=== PATIENT | female | born 1955 | race Caucasian/White ===

== ENCOUNTER 2017-01-12 10:57 | Inpatient (IN) ==
[2017-01-08 17:20] LABS: Basophils # (Auto) 0 K/mcL (0.0-0.3); Basophils % (Auto) 0.6 % (0.0-2.0); Eosinophils # (Auto) 0.3 K/mcL (0.0-0.7); Eosinophils % (Auto) 5.6 % (0.0-7.0); Granulocytes % (Auto) 51.1 % (38.0-78.0); Lymphocytes # (Auto) 1.9 K/mcL (1.5-4.8); Lymphocytes % (Auto) 34.4 % (15.5-49.0); Mean Cell Volume 87.5 fL (80.0-100.0); Mean Corpuscular Hemoglobin 28.9 pg (26.0-34.0); Monocytes # (Auto) 0.5 K/mcL (0.1-0.9); Monocytes % (Auto) 8.3 % (1.0-12.0); Platelet Count 208 K/mcL (140-440); RBC 4.74 M/mcL (4.00-5.20); Red Cell Distribution Width 13.9 % (11.5-14.5)
[2017-01-08 17:33] LABS: Blood Urea Nitrogen 15 mg/dl (6-20)
[2017-01-08 17:58] LABS: Appearance,Urine CLEAR; Bacteria,Urine 0 /hpf (0); Bilirubin,Urine NEG (NEG); Color,Urine YELLOW; Glucose,Urine (UA) NEGATIVE (NEG); Leukocyte Esterase,Urine 25 /uL (NEG); Mucus,Urine MANY /hpf (0); Nitrate,Urine NEG (NEG); Protein,Urine NEG (NEG); Specific Gravity,Urine 1.021 (1.000-1.035); Urine Blood NEG mg/dL (<0.03); Urine RBC 1 /hpf (0-1); Urine Squamous Epithelial Cell 1 /hpf (0-4); Urine Transitional Epi Cells < 1 /hpf (0-2); Urine WBC 5 /hpf (0-4); Urobilinogen,Urine NEG (NEG)
[~2017-01-12 10:57] MED LIST: ACETAMINOPHEN 500 MG TABLET PO SCH; CELECOXIB 200 MG CAPSULE PO SCH; KETOROLAC 30 MG, ROPIVACAINE HCL/PF 49.5 ML, EPINEPHrine 0.5 MG, 0.9 % SODIUM CHLORIDE ... IJ ONE; PREGABALIN 150 MG CAPSULE PO SCH; ceFAZolin 1 GM VIAL IV SCH; oxyCODONE 10 MG TAB.ER.12H PO SCH
[2017-01-12] MEDS ORDERED: ONDANSETRON 4 MG/2 ML VIAL IV ONE (16:05)
[2017-01-12] MEDS ORDERED: MIDAZOLAM 5 MG/5 ML VIAL IV ONE (16:05)
[2017-01-12] MEDS ORDERED: TRANEXAMIC ACID 1,000 MG/10 ML VIAL IV ONE (16:05)
[2017-01-12] MEDS ORDERED: GLYCOPYRROLATE 0.2 MG/ML VIAL IV ONE (16:05)
[2017-01-12] MEDS ORDERED: PROPOFOL 200 MG/20 ML VIAL IV ONE (16:05)
[2017-01-12] MEDS ORDERED: LIDOCAINE HCL/PF 100 MG/5 ML SYRINGE IV ONE (16:05)
[2017-01-12] MEDS ORDERED: ROPIVACAINE HCL/PF 30 ML VIAL IJ ONE (16:05)
[2017-01-12] MEDS ORDERED: DEXAMETHASONE 10 MG/ML VIAL IV ONE (16:05)
[2017-01-12] MEDS ORDERED: GENTAMICIN SULFATE 800 MG/20 ML VIAL IR ONE (16:31)
[2017-01-12] MEDS ORDERED: PROMETHAZINE 25 MG/ML VIAL IM ONE (17:13)
[2017-01-12] MEDS ORDERED: fentaNYL 100 MCG/2 ML VIAL IV PRN (17:13)
[2017-01-12] MEDS ORDERED: MEPERIDINE 50 MG/ML SYRINGE IM ONE (17:13)
[2017-01-12] MEDS ORDERED: NALOXONE HCL 0.4 MG/ML VIAL IV PRN (17:13)
[2017-01-12] MEDS ORDERED: METHOCARBAMOL 1,000 MG/10 ML VIAL IV PRN (17:13)
[2017-01-12] MEDS ORDERED: IPRATROPIUM/ALBUTEROL 3 ML AMPUL.NEB NEB PRN (17:13)
[2017-01-12] MEDS ORDERED: BENZOCAINE/MENTHOL 1 LOZENGE PO PRN ×2 (17:13→17:50)
[2017-01-12] MEDS ORDERED: ONDANSETRON 4 MG/2 ML VIAL IV PRN ×2 (17:13→17:50)
[2017-01-12] MEDS ORDERED: LACTATED RINGERS 250 ML IV PRN (17:13)
[2017-01-12] MEDS ORDERED: ePHEDrine 50 MG/ML AMPUL IV PRN (17:13)
[2017-01-12] MEDS ORDERED: METOCLOPRAMIDE 10 MG/2 ML VIAL IV PRN (17:13)
[2017-01-12] MEDS ORDERED: diphenhydrAMINE 50 MG/ML VIAL IV PRN (17:13)
[2017-01-12] MEDS ORDERED: PROMETHAZINE 25 MG/ML VIAL IV PRN (17:13)
[2017-01-12] MEDS ORDERED: MEPERIDINE 25 MG/ML SYRINGE IV PRN (17:13)
[2017-01-12] MEDS ORDERED: FLUMAZENIL 0.1 MG/ML ML IV PRN (17:13)
[2017-01-12] MEDS ORDERED: HYDROmorphone 2 MG/ML SYRINGE IV PRN ×2 (17:13→17:50)
[2017-01-12] MEDS ORDERED: LACTATED RINGERS 1,000 ML IV SCH (17:15)
--- NOTE | 2017-01-12 17:48 | Brief Operative Note ---
Date of procedure: 01/12/17 Pre-op diagnosis: Right knee severe djd with acl tear and loose bodies Post-op diagnosis: same Procedure: right tka with to robot assist Grafts/Implants: Yes Anesthesia: GETA Complications: none Surgeon: Viktor Mosqueda Raw Silk Grader: He Granados Estimated blood loss (cc): 55 Tourniquet Time (Minutes): 55 Specimens Removed/Pathology: none sent Condition: stable Disposition: PACU
[2017-01-12] MEDS ORDERED: BISACODYL 10 MG SUPP.RECT PR PRN (17:50)
[2017-01-12] MEDS ORDERED: TRANEXAMIC ACID 1,000 MG/10 ML VIAL IV SCH (17:50)
[2017-01-12] MEDS ORDERED: ACETAMINOPHEN 325 MG TABLET PO PRN (17:50)
[2017-01-12] MEDS ORDERED: MAGNESIUM HYDROXIDE 30 ML ORAL.SUSP PO PRN (17:50)
[2017-01-12] MEDS ORDERED: FLEETS ADULT ENEMA PR PRN (17:50)
[2017-01-12] MEDS ORDERED: POLYETHYLENE GLYCOL 3350 17 GM PACKET PO PRN (17:50)
[2017-01-12] MEDS ORDERED: KETOROLAC 15 MG/ML VIAL IV SCH (18:00)
[2017-01-12] MEDS: 0.45 % SODIUM CHLORIDE 1,000 ML IV SCH (19:39)
[2017-01-12] MEDS: HYDROcodone/APAP 10/325MG TABLET PO PRN (20:34)
[2017-01-12] MEDS: ASPIRIN 325 MG ENTERIC COATED TABLET PO SCH (20:35)
[2017-01-12] MEDS: DOCUSATE SODIUM 100 MG CAPSULE PO SCH (20:35)
[2017-01-12] MEDS ORDERED: SENNOSIDES 1 TABLET PO SCH (21:00)
[2017-01-12] MEDS ORDERED: PANTOPRAZOLE 40 MG TABLET PO SCH (21:00)
[2017-01-12] MEDS ORDERED: TEMAZEPAM 15 MG CAPSULE PO PRN (21:00)
[2017-01-12] MEDS ORDERED: Melatonin [Melatonin] 3 MG Tablet PO PRN (21:00)
[2017-01-12] MEDS: KETOROLAC 15 MG/ML VIAL IV SCH (23:30)
[2017-01-12] MEDS ORDERED: ceFAZolin 1 GM VIAL ONE (23:35)
[2017-01-12] MEDS: ceFAZolin 1 GM VIAL IV SCH (23:47)
[2017-01-12] MEDS: 0.9 % SODIUM CHLORIDE 10 ML SYRINGE IV SCH (23:50)
[2017-01-13] MEDS: 0.45 % SODIUM CHLORIDE 1,000 ML IV SCH ×2 (03:36→12:06)
[2017-01-13] MEDS: HYDROcodone/APAP 10/325MG TABLET PO PRN ×2 (03:37→12:23)
[2017-01-13] MEDS: KETOROLAC 15 MG/ML VIAL IV SCH ×2 (05:26→12:07)
[2017-01-13] MEDS: 0.9 % SODIUM CHLORIDE 10 ML SYRINGE IV SCH (05:29)
--- NOTE | 2017-01-13 07:49 | XRay Report ---
CLINICAL INFORMATION: Post-Op Total Knee COMPARISON: None. FINDINGS: Total knee prostheses is anatomically aligned. There are two small, subcentimeter, calcifications in the subpatellar region overlying Hoffa's fat pad - negative unknown. Soft tissue swelling seen as expected IMPRESSION: Anatomically aligned prostheses. Small calcifications overlying Hoffa's fat pad Interpreted and Authenticated by: Chandler Gonzalez 01/13/17
--- NOTE | 2017-01-13 07:56 | Orthopedic Progress Note ---
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 Chief Complaint: [Pt is stable this morning on post operative day 1 without any significant concerns or complaints. Patients vital signs have remained stable. Patients dressing is dry and exhibits a grossly intact neurovascular and neuromotor exam. Patients 10 point ROS is otherwise negative. ] Objective Vital signs: Vital Signs Temp Pulse Resp BP BP Pulse Ox 01/13/17 07:29 95 01/13/17 06:16 93 01/13/17 03:41 97.6 F 70 20 100/63 100 01/13/17 03:40 100 01/13/17 02:00 100 01/12/17 23:06 97.0 F L 73 20 118/74 100 01/12/17 22:00 93 01/12/17 21:38 60 107/70 94 01/12/17 21:08 62 99/66 91 01/12/17 20:38 67 111/70 91 01/12/17 20:22 75 107/70 97 01/12/17 20:08 70 111/73 98 01/12/17 19:10 97.3 F L 73 22 116/69 94 01/12/17 18:45 97.2 F L 73 12 117/72 98 01/12/17 18:38 75 10 L 116/64 97 01/12/17 18:24 66 10 L 117/69 99 01/12/17 18:16 98.1 F 74 12 124/67 97 01/12/17 18:11 98.3 F 79 13 119/65 98 01/12/17 18:06 98.1 F 70 11 L 135/71 97 01/12/17 18:01 98.0 F 80 12 134/73 99 01/12/17 18:00 98.0 F 80 12 123/73 99 01/12/17 10:57 97.9 F 71 16 107/69 99 Intake and Output 01/12/17 01/13/17 01/13/17 21:59 05:59 13:59 Intake Total 1800 / 1800 2093 / 2093 Output Total 125 / 125 775 / 775 350 / 350 Balance 1675 / 1675 1319 / 1319 -350 / -350 Intake: IV 994 / 994 Sodium Chloride 0.45% 1, 994 / 994 000 ml @ 125 mls/hr IV . Q8H RICKY Rx#:[id number] Oral 1100 / 1100 IV - Manual Only 1800 / 1800 Output: Void Amount 125 / 125 775 / 775 Emesis 350 / 350 Other: # Voids 1 Weight 195 lb Intake & Output: Intake & Output 01/12/17 01/13/17 01/13/17 21:59 05:59 13:59 Intake Total 1800 / 1800 2093 Output Total 125 / 125 775 / 775 350 / 350 Balance 1675 / 1675 1319 / 1319 -350 / -350 Weight 195 lb Intake: IV 994 / 994 Sodium Chloride 0.45% 1, 994 / 994 000 ml @ 125 mls/hr IV . Q8H RICKY Rx#:[id number] Oral 1100 / 1100 IV - Manual Only 1800 / 1800 Output: Void Amount 125 / 125 775 / 775 Emesis 350 / 350 Other: # Voids 1 Incision: Yes healing Incision clean and dry: Yes Dressing: Yes clean, Yes dry Weight bearing status: full Neurological exam IM: Yes motor sensory intact, Yes neurovascular intact Extremities exam IM: Yes Foot pink and warm, Yes neurovascular intact - Labs CBC & BMP: 01/13/17 04:35 01/08/17 15:40 Labs: Orthopedic Labs 01/08/17 15:40 PT 12.8 INR 0.9 APTT 29 01/13/17 01/08/17 04:35 15:40 Hgb 13.7 Hct 37.5 41.5 Assessment and Plan (1) Hx of total knee arthroplasty Patient has been educated regarding wound care and dressings, follow up recommendations, and medication use. We will f/u with the patient within 2-3 weeks for wound check. Status: Acute
--- NOTE | 2017-01-13 07:58 | Discharge Summary ---
Ortho Discharge - TKA - Patient Instructions Diet: Regular Diet Activity: activity as tolerated, weight bearing as tolerated Total Knee Protocol: For Total Knee: Start ROM SONI with stationary bike or rocking chair. Work on gaining full extension of knee. Posterior dislocation precautions provided. Hip abductor strengthening and gait training instructions provided. Apply Cryocuff as instructed. Dressing Care: Aquacel Ag - leave on for 5 days - Problem Maintenance (1) Hx of total knee arthroplasty Status: Acute - Follow Up Plan Follow Up Appointments: Viktor Mosqueda MD [Physician] - 01/27/17 1:40 pm Disposition: Home, Self-Care Prognosis: Good Rehab Potential: Good I certify that the patient requires SNF services: No Overall status at discharge: patient is progressing back to baseline - Orders For Discharge Prescriptions: Aspirin [Ecotrin] 325 mg PO BID #60 tab.ec Docusate Sodium [Colace] 100 mg PO BID #60 capsule HYDROcodone/APAP 10/325MG [[place] 10/325Mg] 1 - 2 tab PO Q4HP PRN #75 tablet PRN Reason: Pain
[2017-01-13] MEDS ORDERED: MULTIVIT,THER IRON,CA,FA & MIN 1 TABLET PO SCH (09:00)
[2017-01-13] MEDS ORDERED: guaiFENesin 600 MG TAB.SR.12H PO SCH (09:00)
--- NOTE | 2017-01-13 09:02 | Operative Note ---
DATE OF OPERATION: 01/12/2017 PREOPERATIVE DIAGNOSES: A 61-year-old with severe right knee degenerative arthritis, ACL tear and loose bodies. POSTOPERATIVE DIAGNOSES: A 61-year-old with severe right knee degenerative arthritis, ACL tear and loose bodies. PROCEDURE: Right total knee arthroplasty using the [employer] robot. SURGEON: Viktor Mosqueda MD SERVER ADMINISTRATOR: He Granados PA-C ANESTHESIA: General LMA anesthesia. COMPLICATIONS: None. TOTAL TOURNIQUET TIME: Approximately 55 minutes. ESTIMATED BLOOD LOSS: 20 mL IMPLANTS: Per nurse's note. These were cemented femoral and tibial baseplates with a 16 mm poly insert and a 36 mm patellar button. Multiple loose bodies were removed, both spurs posteriorly and into the notch. The ACL had been completely ruptured. DESCRIPTION OF PROCEDURE: The patient was brought to the operating room and put to sleep with general LMA anesthesia. Once asleep, the patient had the right leg sterilely prepped and draped in the usual sterile fashion. Once the leg was confirmed as the operative site, initials were identified, preop antibiotics given, tranexamic acid given and Ioban placed over the skin, we started with a midline incision, a mid vastus approach performed. We exposed the joint with severe arthritis in all three compartments, ruptured ACL, a large loose body within the notch which restricted motion and extension. At this point the loose bodies were removed. We placed two pins above and below the knee and the sensors were placed. These arrays were placed. We then registered center of hip rotation and registered the medial and lateral malleolus and registered intra-articular pins, one on the femur and one on the tibia. We registered 30 points on the femur and the tibia. We removed the remnants of the meniscus, balanced the knee both in flexion and extension. After releasing the medial collateral contracture of 11 degrees, we then noted that there was about a 22 mm gap. Then, after removing osteophytes posteriorly this gap grew to approximately 25 mm, both flexion and extension. We then made our cut using the robot. The robot was brought in, all the femoral cuts were made and tibial cut was made. These bony fragments were removed. We removed the remnants of the posterior meniscus medially and laterally and made sure there was no more spurs posteriorly which there was very large spurs. We placed the tibial baseplate and set the rotation using the green probe. Femoral component was tapped into place and then we trialed the size 11, 13 and 16 seemed to be the most appropriate with about 5 degrees extension and varus valgus alignment was neutral both in flexion and extension. The patient seemed to fit well with these components. The patella measured a total thickness of 24 mm. We cut this to 14 mm and placed a 36 mm patellar button with a small chamfer cut laterally. We then cemented into place the above-mentioned sizes removing excess cement using the 16 poly, injecting the post-injection formula prior to cementing. We used CarboJet pulse lavage and cleaned the bone so the cement would penetrate to maximum. Excess cement was removed, both posterior and anterior and all components. We kept the knee at 45 degrees until all cement was dry, then reinspected all areas for any loose bodies. We flushed the knee with copious amounts of irrigation, closed the wound with #2 FiberWire and a #1 Maxon stitch. The skin was closed with 2-0 Vicryl and adhesive closure. The patient tolerated this well without complication. RBShireen:gabrielle Job ID: [id number] Doc ID: [id number] Viktor Mosqueda MD
[2017-01-13] MEDS: DOCUSATE SODIUM 100 MG CAPSULE PO SCH (09:22)
[2017-01-13] MEDS: ASPIRIN 325 MG ENTERIC COATED TABLET PO SCH (09:22)
[2017-01-13] MEDS: ceFAZolin 1 GM VIAL IV SCH (09:51)
== END 2017-01-13 15:10 | disposition home or self-care (01) | DRG 470 ==
LOC: MEDSUR 10:57
PROVIDERS: ADMIT Orthopaedic Surgery; ATTEND Orthopaedic Surgery